=== PATIENT | male | born 1995 | race Caucasian/White ===

== ENCOUNTER 2016-07-17 22:51 | Emergency (ER) | payer OTHER, BC ==
[2016-07-17] MEDS ORDERED: METHOCARBAMOL 500 MG TAB As Ordered ONE (23:22)
[2016-07-17] MEDS ORDERED: NORCO 5/325MG TABLET (BULK) As Ordered ONE (23:22)
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
== END 2016-07-17 23:35 | disposition home or self-care (01) ==
LOC: M ED 22:51
DX: S30.0XXA Contusion of lower back and pelvis, initial encounter (principal); W22.8XXA Striking against or struck by other objects, initial encounter; Y92.019 Unspecified place in single-family (private) house as the place of occurrence of the external cause; Y93.89 Activity, other specified; Y99.8 Other external cause status; F17.210 Nicotine dependence, cigarettes, uncomplicated; Z79.899 Other long term (current) drug therapy

== ENCOUNTER 2016-08-18 13:02 | Emergency (ER) | payer BC, MEDICAID, OTHER ==
[2016-08-18] MEDS ORDERED: ALBUTEROL SULFATE 2.5 MG/0.5 ML INH NEB SOLN As Ordered ONE (16:01)
[2016-08-18 16:39] LABS: BASO % 0.5 % (0.0-1.0); EOS # 0.4 K/mm3 (0.0-0.50); EOS % 4.9 % (0.0-3.0); LARGE UNSTAINED CELL # 0.1 K/mm3 (0.0-0.4); LARGE UNSTAINED CELL % 1.3 % (0.0-4.0); LYMPH # 2.6 K/mm3 (1.5-6.5); LYMPH % 30.4 % (24.0-44.0); MEAN CORPUSCULAR HEMOGLOBIN 32.1 pg (27.0-33.0); MEAN CORPUSCULAR HGB CONC 34.8 g/dl (32.0-36.5); MEAN CORPUSCULAR VOLUME 92.2 fl (80.0-96.0); MONO # 0.4 K/mm3 (0.0-0.8); MONO % 5.2 % (0.0-5.0); NEUTROPHILS # 4.7 K/mm3 (1.8-7.7); NEUTROPHILS % 57.7 % (36.0-66.0); PLATELET COUNT, AUTOMATED 206 k/mm3 (150-450); WHITE BLOOD COUNT 8.1 K/mm3 (4.0-10.0)
--- NOTE | 2016-08-18 17:10 | REP ---
Chest x-ray: Two views. History: Chest pain . Comparison study: December 21, 2014 with . Findings: The lungs are well inflated and free of infiltrate. The pleural angles are sharp. The heart size is normal. Pulmonary vasculature is not increased. No significant bony abnormality is seen. Impression: Negative chest x-ray. Signed by Anthony Barker MD 08/18/2016 05:00 P
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
--- NOTE | 2016-08-18 19:07 | ECGEPIP ---
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
== END 2016-08-18 18:02 | disposition home or self-care (01) ==
LOC: M ED 13:02
DX: J20.9 Acute bronchitis, unspecified (principal); Z87.81 Personal history of (healed) traumatic fracture; F17.200 Nicotine dependence, unspecified, uncomplicated

== ENCOUNTER 2017-05-04 22:16 | Emergency (ER) | payer MEDICAID, OTHER, SELFPAY ==
[~2017-05-04] VITALS: Ht 167.6 cm; Wt 77.3 kg
[2017-05-04] MEDS ORDERED: IBUP80TA PO (23:52)
[2017-05-05] MEDS ORDERED: IBUPROFEN 800 MG TAB PO ONE
[2017-05-05 00:12] VITALS: BP 155/86
== END 2017-05-05 00:15 | disposition home or self-care (01) ==
LOC: M ED 22:16
DX: N64.4 Mastodynia (principal); F17.210 Nicotine dependence, cigarettes, uncomplicated

== ENCOUNTER → 2017-11-14 | Outpatient (REF) | payer SELFPAY | LOC: M LAB REF 11-15 11:19 | DX: J02.9 Acute pharyngitis, unspecified (principal) | CPT/HCPCS: 87077 ==

== ENCOUNTER → 2024-05-01 | Outpatient (CLI) | payer OTHER ==
[~2024-05-01] MED LIST: IBUP80TA PO
== END ==
LOC: M RAD 08:21
PROVIDERS: ATTEND Physician Assistant
DX: R10.11 Right upper quadrant pain (principal)